=== PATIENT | female | born 1960 | race Caucasian/White ===

== ENCOUNTER 2022-06-03 14:59 | Inpatient (IN) | payer OTHER ==
[~2022-06-03] VITALS: Ht 170.2 cm; Wt 75.8 kg
[2022-06-03 16:38] LABS: BASOPHILS % 0.3 % (0.0-2.0); EOSINOPHILS % 0.1 % (0.0-5.0); HEMATOCRIT. 36.2 % (36.0-48.0); HEMOGLOBIN. 12.3 g/dL (12.0-16.0); LYMPHOCYTES % 9.7 % (20.0-50.0); MEAN CORPUSCULAR HEMOGLOBIN 30.1 pg (28.0-32.0); MEAN CORPUSCULAR VOLUME 88.5 fL (81.0-99.0); MEAN PLATELET VOLUME 8.9 fl (7.4-10.4); MONOCYTES % 3.9 % (2.0-8.0); PLATELET 273 x1000/uL (130-400); RED BLOOD CELL COUNT 4.09 mill/uL (4.2-5.4)
[2022-06-03 16:42] LABS: CHLORIDE 107 mEq/L (98-107)
[2022-06-03] MEDS ORDERED: ASPIRIN 325MG EC TABLET PO NR (18:30)
[2022-06-03] MEDS ORDERED: SODIUM CHLORIDE 0.9% 500 ML IV ONE (21:15)
[2022-06-04 03:03] VITALS: BP 130/78
[2022-06-04 04:00] VITALS: BP 116/68
[2022-06-04 08:00] VITALS: BP 137/67
[2022-06-04] MEDS ORDERED: LEVO125T MT (08:00)
[2022-06-04] MEDS ORDERED: ACETAMINOPHEN 325MG TABLET PO PRN (09:30)
[2022-06-04] MEDS ORDERED: CLONIDINE 0.1MG TABLET PO PRN (09:30)
[2022-06-04] MEDS ORDERED: DIPHENHYDRAMINE 50MG/ML VIAL IV PRN (09:30)
[2022-06-04] MEDS ORDERED: IPRATROPIUM/ALBUTEROL 0.5-3(2.5)MG/3ML NEB HHN PRN (09:30)
[2022-06-04] MEDS ORDERED: ONDANSETRON HCL 4MG/2ML INJ IV PRN (09:30)
[2022-06-04] MEDS ORDERED: INFLUENZA VACCINE 05/PF 0.5 ML SYRINGE IM ONE (11:00)
[2022-06-04 12:00] VITALS: BP 124/82
[2022-06-04] MEDS: DILTIAZEM HCL 30MG TABLET PO SCH ×2 (12:32→17:52)
[2022-06-04 14:17] LABS: T4 FREE 1.2 ng/dL (0.76-1.46)
[2022-06-04 16:00] VITALS: BP 136/80
[2022-06-04] MEDS ORDERED: DIGOXIN 125MCG TABLET PO SCH (18:00)
[2022-06-04] MEDS: LEVOTHYROXINE SODIUM 125MCG TABLET PO SCH (18:53)
[2022-06-04 20:00] VITALS: BP 114/74
[2022-06-05] VITALS: BP 119/59
[2022-06-05] MEDS: DILTIAZEM HCL 30MG TABLET PO SCH ×3 (00:36→12:10)
[2022-06-05 04:00] VITALS: BP 156/83
[2022-06-05] MEDS: LEVOTHYROXINE SODIUM 125MCG TABLET PO SCH (05:32)
[2022-06-05 06:54] LABS: CHLORIDE 108 mEq/L (98-107)
[2022-06-05 08:00] VITALS: BP 130/78
[2022-06-05] MEDS ORDERED: DILT30TA37 PO (11:25)
[2022-06-05] MEDS ORDERED: DIGO-34 PO (11:25)
[2022-06-05 12:00] VITALS: BP 150/84
[2022-06-05 12:00] LABS: BASOPHILS % 0.6 % (0.0-2.0); EOSINOPHILS % 0.3 % (0.0-5.0); HEMATOCRIT. 40.3 % (36.0-48.0); HEMOGLOBIN. 13.6 g/dL (12.0-16.0); LYMPHOCYTES % 18.9 % (20.0-50.0); MEAN CORPUSCULAR HEMOGLOBIN 29.8 pg (28.0-32.0); MEAN CORPUSCULAR VOLUME 88.6 fL (81.0-99.0); MEAN PLATELET VOLUME 9.3 fl (7.4-10.4); MONOCYTES % 4.7 % (2.0-8.0); NEUTROPHILS % 75.5 % (40.0-76.0); PLATELET 309 x1000/uL (130-400); RED BLOOD CELL COUNT 4.56 mill/uL (4.2-5.4); RED CELL DISTRIBUTION WIDTH 13.4 % (11.6-14.6)
== END 2022-06-05 13:57 | disposition home or self-care (01) | DRG 281 ==
LOC: ER 14:59 → 7EST 20:49 → EDBEDREQTM 21:57 → EDBEDREQ 21:57 → ENRESERV 23:33
PROVIDERS: ADMIT Internal Medicine; ATTEND Internal Medicine
DX: I21.4 Non-ST elevation (NSTEMI) myocardial infarction (principal); I47.1 Supraventricular tachycardia; E03.9 Hypothyroidism, unspecified; Z20.822 Contact with and (suspected) exposure to COVID-19; R74.01 Elevation of levels of liver transaminase levels
CPT/HCPCS: 36415; 71045; 80048; 80053; 83735; 83880; 84439; 84443; 84480; 84484; 85025; 93005; 93306; 93970; 99285; J7040